=== PATIENT | male | born 1965 | race African-American/Black ===

== ENCOUNTER 2024-09-10 21:16 | Emergency (ER) | payer OTHER, SELFPAY ==
--- NOTE | ~2024-09-10 | XR_ITS ---
Left foot Technique: AP, oblique, and lateral views were obtained. Clinical History: Great toe pain Findings: No acute fracture or dislocation is seen. Osseous alignment is anatomic. There is moderate degenerative change of the first TMT joint. Soft tissues are unremarkable. 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 Reviewed, dictated and finalized at [facility]. 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
--- OUTSIDE RECORDS SUMMARY | 2024-09-10 21:19 | XMS_ITS | CONTINUITY OF CARE DOCUMENT ---
Author Name gabe doloresangelica Address Unknown Organization [facility] Address [address] [address] [address] [place] [address] Phone [phone] Care Team Providers Care Daytime Babysitter Name Role Phone Stalin REGAN, Logan Unavailable [phone] DESHAWN GARCIA MD Unavailable DESHAWN GARCIA MD Unavailable [phone] PROBLEMS Condition Status Date Provider Notes Chest pain active Marquita Gibson VITAL SIGNS Date Observation Value Provider weight E&M 229 [lb_av] Marquita Gibson height E&M 69 [in_i] Marquita Gibson INSURANCE PROVIDERS Payer name Policy type / Coverage type [employer] red libertarian ID [facility] [id number] Other [id number] TREATMENT PLAN Date Name Stress Exercise Card iolite HISTORY OF PROCEDURES Procedure Date Procedure Name Provider Procedure Notes S tatus Cardiolite, 2 units Logan Gant MD completed SPECT Images Logan Gant MD complet ed Stress EKG Logan Gant MD completed Stress EKG Robe Chaudhry MD complete d
--- OUTSIDE RECORDS SUMMARY | 2024-09-10 21:19 | XMS_ITS | Continuity of Care Document ---
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 Name Role Phone Annetta Woods MD Unavailable Unavailable Allergies, Adverse Reactions, Alerts Substance Reaction Status Criticality No Known Allergies Active No Inform ation Medications Medication Instructions Dosage Effective Dates (start - stop) Status Comments Lipitor 20 mg tablet take 1 tablet by or al route every day 20 MG - Active Procedures Procedure Date OFFICE [id number] BODY MASS INDEX DOCD SYST BP >= 140 MM HG6 IT DIAST BP >= 90 MM HG EKG (ELECTROCARDIOGRAM) GENERAL HEALTH PANEL LIPID PANEL PSA, TOTAL ROUTINE VENIPUNCTURE PREVENTATIVE-EST: 40-64 BODY MASS INDEX DOCD SYST BP GE 130 - 139MM HG DIAST BP 80-89 MM HG BASIC METABOLIC PANEL(BMP) ROUTINE VENIPUNCTURE OFFICE [id number] BODY MASS INDEX DOCD SYST BP LT 130 MM HG DIAST BP >= 90 MM HG BASIC METABOLIC PANEL(BMP) CBC, INC PLATELETS AND DIFFERENTIAL THYROID STIMULATION HORMONE(TSH) ROUTINE VENIPUNCTURE OFFICE [id number] BODY MASS INDEX DOCD SYST BP >= 140 MM HG6 IT DIAST BP >= 90 MM HG HEMOGLOBIN A1C HGA1C, GLYCO Pt inelig neg scrn van TELEPHONE E&M BY A PHYSICIAN; 11-20 ALBERTO NENITA SYST BP >= 140 MM HG6 IT DIAST BP >= 90 MM HG OFFICE [id number] BODY MASS INDEX DOCD SYST BP >= 140 MM HG6 IT DIAST BP >= 90 MM HG TISSUE EXAM BY PATHOLOGIST COLONOSCOPY AND BIOPSY OFFICE [id number] BODY MASS INDEX DOCD SYST BP >= 140 MM HG6 IT DIAST BP >= 90 MM HG BASIC METABOLIC PANEL(BMP) ROUTINE VENIPUNCTURE Pt inelig neg jennifern van PREVENTATIVE-EST: 40-64 BODY MASS INDEX DOCD SYST BP >= 140 MM HG6 IT DIAST BP >= 90 MM HG EKG (ELECTROCARDIOGRAM) GENERAL HEALTH PANEL LIPID PANEL MICROALBUMIN, QN (URINE) CREATININE, (U-R) ROUTINE VENIPUNCTURE Pt inelig neg jennifern van OFFICE [id number] BODY MASS INDEX DOCD SYST BP >= 140 MM HG6 IT DIAST BP >= 90 MM HG BASIC METABOLIC PANEL(BMP) CBC, INC PLATELETS AND DIFFERENTIAL THYROID STIMULATION HORMONE(TSH) 2018 ROUTINE VENIPUNCTURE EKG (ELECTROCARDIOGRAM) OFFICE [id number] BODY MASS INDEX DOCD SYST BP >= 140 MM HG6 IT DIAST BP >= 90 MM HG Pt inelig neg scrn depres OFFICE [id number]-MED BODY MASS INDEX DOCD SYST BP >= 140 MM HG6 IT DIAST BP >= 90 MM HG GENERAL HEALTH PANEL HEPATITIS C ANTIBODY HEPATITIS B SURFACE ANTIGEN (HBSAG) HIV-1 AG W/HIV-1 & HIV-2 AB LIPID PANEL PSA, TOTAL ROUTINE VENIPUNCTURE Advance Directives Directive Yes / No Effective Date File Name No Information Encounters Encounter Description Practice Location Reason(s) For Visit Diagnoses Date Provider Providers Copied on Encounter [employer] [employer], [address], [place], [place], [address] , [phone] [facility] No Information [address] Chuck [address]. [address], [facility] [address], [place], [place], [address], [place]. tel:[phone] OFFICE SQPIJ-CIV-TX TAILED [employer], [address], [place], [place], [address] , tel:[phone] [facility] Chronic Conditions (chief complaint) Body mass index [BMI] 34.0-34.9, adultEssential (primary) hypertensionHype rlipidemia, unspecifiedPredi abetesDizziness 2 Chuck Littlejohn. [address], [facility] [address], [place], [place], [address], [place]. tel:[phone] Referring Provider: Annetta Woods, [address], [place], [address] . tel:[phone] PREVENTATIVE -EST: 40-64 [employer] [employer], [address], [place], [place], [address] , tel:[phone] [facility] preventive exam (chief complaint) Body mass index [BMI] 35.0-35.9, adultEncounter for adult health check-upPrediabe tesEssential (primary) hypertension - 1 Chuck Littlejohn. [address], [address], [place], [place], [address], . tel:[phone] Referring Provider: [address], [place], [address] . tel:[phone] OFFICE ZTTWP-AGL-FQ [facility], [address], [place], [place], [address] , [place] tel: [phone] [facility] F/u HTN (chief complaint) Essential hypertensionBody mass index [BMI] 35.0-35.9, adult Mar- 1 Ananya Alvarez. [address], [address], [place], [place], [address], [place]. tel:[phone] Referring Provider: [address], [place], [address] . tel:[phone] OFFICE JYNLZ-CNZ-UT [facility], [address], [place], [place], [address] , [place] tel: [phone] [facility] F/u HTN (chief complaint) Essential hypertensionBody mass index [BMI] 34.0-34.9, adultElevated glucose [address], [address], [place], [place], [address], [place]. tel:[phone] Referring Provider: [address], [place], [address] . tel:[phone] TELEPHONE E&M BY A PHYSICIAN; 11-20 MINUTES [facility], [address], [place], [place], [address] , tel: [phone] [facility] Acute (chief complaint) Essential hypertension 1 Ananya Alvarez. [address], [address], [place], [place], [address], [place]. tel:[phone] Referring Provider: [address], [place], [address] . tel:[phone] OFFICE URYRR-NZU-XF [facility] [employer], [address], [place], [place], [address] , tel: [phone] [facility] F/u HTN (chief complaint) Essential hypertensionBody mass index (BMI) 35.0-35.9, adult Oct 0 Ananya Al[address]. [address], [address], [place], [place], [address], [place]. tel:[phone] Referring Provider: [address] [facility] [address], [place], [address] . tel:[phone] [employer] [employer], [address], [place], [place], [address] , tel: [phone] [facility] No Information Sep-0 0 Jamal Ant. [address] [place], [place], [address], . tel:[phone] Referring Provider: [address] [address], [place], [address] . tel:[phone] [facility], [address], [place], [place], [address] , [place] tel: [phone] [facility] No Information Sep-0 0 Jamal Ant. [address] [place], [place], [address], [place]. tel:[phone] Referring Provider: [address] [facility] [address], [place], [address] . tel:[phone] OFFICE [facility]YPZ[facility]LW [facility], [address], [place], [place], [address] , [place] tel: [phone] [facility] F/u HTN (chief complaint) Body mass index (BMI) 35.0-35.9, adultEssential hypertension Dec- 0 Ananya Al[address]. [address], [address], [place], [place], [address], [place]. tel:[phone] Referring Provider: Annetta Woods, [address], [place], [address] . tel:[phone] PREVENTATIVE -EST: 40-64 [facility], [address], [place], [place], [address] , [place] tel: [phone] [facility] preventive exam (chief complaint) Body mass index (BMI) 34.0-34.9, adultEncounter for adult health check-upChest pain, unspecified typeEssential hypertensionColo n cancer screening 0 Chuck Littlejohn. [address], [address], [place], [place], [address], [place]. tel:[phone] Referring Provider: [address], [place], [address] . tel:[phone] OFFICE FCXIJ-BEO-YG [facility], [address], [place], [place], [address] , [place] tel: [phone] [facility] Blood pressyre f/u (chief complaint)C hronic Conditions (chief complaint) Body mass index (BMI) 33.0-33.9, adultEssential (primary) hypertensionObes ity, unspecified 0 Chuck Littlejohn. [address], [address], [place], [place], [address], [place]. tel:[phone] Referring Provider: [address], [place], [address] . tel:[phone] OFFICE DCBQH-VHK-NK [facility], [address], [place], [place], [address] , [place] tel: [phone] [facility] Acute (chief complaint) Body mass index (BMI) 33.0-33.9, adultEssential hypertensionChes t pain, unspecified type 9 Lazjb Kim. [address], [address], [place], [place], [address], [place]. tel:[phone] Referring Provider: [address], [place], [address] . tel:[phone] OFFICE MSTBR-YZV-XO [facility], [address], [place], [place], [address] , tel: [phone] [facility] preventive exam (chief complaint) Body mass index (BMI) 32.0-32.9, adultPhysical examElevated blood pressure readingScreen for STD (sexually transmitted disease) Chuck Littlejohn. [address], [address], [place], [place], [address], [place]. tel:[phone] Referring Provider: [address], [place], [address] . tel:[phone] Family History Family Member Type Diagnosis Age At Onset Mother Problem (finding) hypertension Father Problem (finding) Alive and well Maternal grandmother Problem (finding) Cancer, unknown (Cause Of ) Mother Problem (finding) hypercholesterolemia Payers Payer name Insurance type Covered alliance party ID Authoraidaa billy(s) [facility] [id number] Social History Type Description Quantity Date Captured Comments Alcohol Use Details Unknown Caffeine Use Details Unknown Tobacco Use Status No Information Smoking Status No Information Sex Male Chief Complaint And Reason For Visit No Information Reason For Referral Reason For Referral No Information Plan Of Treatment Date Type Action Status Goal Dietary manageme nt education, guidance, and counseling completed Goal Dietary manageme nt education, guidance, and counseling completed Goal Dietary manageme nt education, guidance, and counseling completed Goal Dietary manageme nt education, guidance, and counseling completed Goal Dietary manageme nt education, guidance, and counseling completed Goal Dietary manageme nt education, guidance, and counseling completed Goal Dietary manageme nt education, guidance, and counseling completed Goal Dietary manageme nt education, guidance, and counseling completed Goal Dietary manageme nt education, guidance, and counseling completed Goal Dietary manageme nt education, guidance, and counseling completed Referral Ordered: Chest Xray, 2 Views ordered Referral Referred To: MINA LAKHANI [id number] [place], [phone] Ordered: Referrals: Internal Medicine. MINA LAKHANI. Evaluation/diagnostic/treatment - Level 3 ordered Referral Referred To: [address], [place], [phone] Ordered: COLONOSCOPY, FLEXIBLE, DIAGNOSTIC W/ COLLECTION OF SPECIMEN ordered Referral Referred To: [address] [place], [phone] Ordered: Stress test, using adenosine ordered Future Order: Radiology Order Ch est Xray, 2 Views ([id number]), Sent on: Sent History Of Present Illness Encounter Date Complaint History Of Prese nt Illness Comments: -HTN: didn't take HCTZ: hasn't been taking his rx for several months. no cp/palp/sob, no LE edema. No PND no orthopnea. This AM, had LH when standing to take a shower this AM, sx resolved with shower and eating something. Symptoms since Tuesday. He had a root canal yesterday. Per , reports he has been off since : feels like head was foggy, and he had clammy today. No n/v. no cp/palp/sob. No LE Edema. No sx when lying down. At work, walking around and feeling ok. -HL: ASCVD 11% 03/31, declined statin. No change in diet/exercise/weight. He is willing to initiate.-PreDM: No change in diet/exercise/weightWife accompanies. Delcines td, Shingrix covid vaccine Chronic Conditions *See Chronic Conditions HPI preventive exam (comments) Physi rene c-scope 12/29 next 5-10yrsPSA 0.6 10/27. Duedecines shingrix: had shingles infection left flank 2015, declines tetanus vaccine as well. HCV Screening 10/27 negativeVax:Tdap, Shingrix, fluvax, covid decliens all, no questions-PreDM: hba1c UTD 6.4-HTN: on rx. No cp/palp/sob, no LE edema. No PND no orthopnea preventive exam Men's preventive visit. Marital status: . Relevant history is negative for tobacco use, alcohol use. F/u HTN Here for f/u HTN . At last visit BP 140/98 HR 105, 140/100 HR 104. He had been taking HCTZ for about 1 week, Bp was improving, so no med changes made at that time. BP is improving but DBP remains above goal. Denies H/A, dizziness, edema, palpitations, CP, SOB.BMI 35, up 3.2lbs. F/u HTN Here for f/u HTN . Pt had BP checked by school nurse, last visit was . Bp readings were 170/116, 170/110. He had been out of HCTZ for months. We restarted this. States it took a week for [facility] to get it for him. He noticed increase in urination. No CP, H/A, dizziness, SOB, palpitations. States every now and then he smells cigarette smoke, though no one is smoking. His doesn't smell it, and this bothers her. Happens maybe once/day. No other neurologic symptoms, lasts a few seconds, not accompanied by H/A, migraine, seizure, vision changes, etc.BMI 34.3, down 6lbs from last visit a year ago.Declines influenza vaccine. Acute Appt today via [place], audio only.Pt was having H/A, dizziness, and sweats on 02/08. Stayed in bed that day, he felt very dizzy, if he sat up he got dizzy. Went to work yesterday, felt better. BP 179/124, checked at [facility]. He's at work now, BP 0900 170/110. Checked it again just now, 170/116 HR 79 SpO2 98%. He was on HCTZ, but he ran out. He feels better than he did Tuesday. Yesterday felt pretty good. His legs feel tired, notes walking on concrete at school. Not dizzy today or yesterday, not LH. No SOB. Denies CP, edema, palpitations, vision changes.He thinks his weight is about the same, perhaps a few pounds less. No formal exercise, but walks a lot at work, some lifting. 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 He has not been vaccinated. Also does not get flu shot.No fevers, chills, cough, SOB, pharyngitis, sinus pressure, sore throat, N/V, diarrhea, loss of taste or smell. F/u HTN Here for 1-month f/u HTN. At last visit BP 140/92 HR 95, 144/100 HR 88. No meds changed. Feels pretty good. Some mild discomfort finger on L hand at times. No CP, H/A, dizziness, SOB, edema, palpitations. Overall doing well. BP remains above goal. BMI 35.2. Weight up 1.8lbs.Declines influenza vaccine. F/u HTN Here for f/u HTN . At last visit BP 180/109 HR 85, 165/108. Dr. Woods instructed pt to resume HCTZ 25mg qFD. Also referred to Dr. Villalobos re: CP. He did have stress test 2 days ago, he has not heard results, will request.He is taking HCTZ, no issues. Denies CP, no recurrence. No SOB, palpitations, H/A, dizziness. BMI 35, up 1.2lbs from last visit. Working on his diet. Avoids fried foods, uses Air Fryer.Looks like colonoscopy is scheduled next week, he is going to call to clarify, he has the bowel prep at home. preventive exam (comments) c-sco pe ref 10/27 ref again 11/28PSA 0.6 10/27decines shingrix: had shingles infection left flank 2015, declines tetanus vaccine as well. HCV Screening 10/27 negativedoing well, family doing well, staying healthy BUTHTN: had an incident with a family member, not physical , but emotionally stressful. Since this time, he has been having sx of cp radiating to left arm . 2wks ago. Has been working, staying active without any exertinoal sx. no pain with movement of left arm. no radiation to neck. no LE edema. no cough. no SOB, no TAVAREZ, No dizzy/LH. hasn't been checking BPno pnd no orthopnea. Sx is tingling pain, 2.5/10. never wakes him from sleepbought ASA 81mg, hasn't tried it. no remitting maneuversWife was crying which is what triggered this appt. She is concernedHe has no heartburn sx, no assoc with exertion: he is very active, moving paint cans up and down ladders, n recent strain. no weakness. no falls no trauma. right handeddeclins to give details about incident with family member, but he feels safe, and this was not physical.stopped BP medications, ahsn't checked BP at home preventive exam Men's preventive visit. Patient Health Questionnaire (PHQ-2) is negative. Relevant history is negative for tobacco use, alcohol use. Blood pressyre f/u accompanied b y wifeseveral month sx of vague fuzzy feeling. no overt LH, no dizzy, no cp/palp/sob. no weakness, nofalls no trippnig no leaning to one side. no fatigue no n/v. Chronic Conditions *See Chronic Conditions HPI Acute Here feeling diz zy at times. Feels like his body is off, equilibrium off. The room is not spinning, not specifically dizzy, but feels like sometimes something is pulling on the back of his eyeballs. Takes a minute in the morning for his eyes to focus. No headaches. The balance feels off if he goes from sitting to standing, or if he looks down for a while and then walks. Sometimes feels like he is drifting.His BP is high, similar to last visit. Thinks it is d/t his urging him to come into today. Also notes he had some chest pain last week, intermittent over 2-3 days, L chest above the breast, he rates it 2.5-3/10, his notes he was sweating. Not necessarily with exertion, happened at rest. BMI 33.8, weight up 12lbs from last visit.Declines influenza vaccine. preventive exam (comments) melecio [facility] [employer] engaged TOMORROW! wants to get STD check today: no specific concernsc-scope ref 10/27PSA started 10/27decines shingrix: had shingles infection left flank 2016hasn't seen a dr in >5yrs, possibly 10. thinks he has had tetanus in <10yrs bc of his job he will find outvery active, could eat betterBP is high today: no cp/palp/sobno le edemano ET limitationsno pnd no orthopneahe hates drs, nervous about being here. has checked at grocery store and was always nL preventive exam Men's preventive visit. Patient Health Questionnaire (PHQ-2) is positive. Relevant history is negative for tobacco use, alcohol use. Functional Status Date Functional Assessmen t No Information Instructions Date Instruction Additional Infor mation cbc cmp tsh [id number] P controlto ER with any recurrencef/u 1wkBP f/u then Physical 6months Related to Dizziness hba1c continue effor ts regarding weight losshealthy dietregular aerobic exercisePhysical 6months Related to Prediabetes education provided r e: ASCVD and recommendations: he will initiate statin today Related to Hyperlipidemia, unspecified EKGcbc cmp tshresume HCTZwe discussed my concern re: BP readings as well as sx: to ER with any recurrence of dizziness/LH, or cp/palp/sob. We discussed stroke, [place], sudden risk. F/U 1wk Related to Essential (primary) hypertension Prescribed activity/exercise edu cation Related to Body mass index (BMI) 34.0-34.9, adult Disease process Dietary management e ducation, guidance, and counseling Related to Body mass index (BMI) 34.0-34.9, adult weight losshealthy d ietregular aerobic exerciseROV 6months Related to Body mass index [BMI] 35.0-35.9, adult -cbc, cmp, tsh, lipi ds-STEs-PSA, prostate cancer screening guidelines dxgqktkve-e-cleiw UTD-CT CHest n/a-HCV Screening s/p neg-Vaccines: tetanus, covid, fluvax, shingrix opts to decline-healthy diet and Exercise Related to Encounter for adult health check-up hba1c UTDhealthy diet, exercise Related to Prediabetes cbc, cmp, tsh, lipid s, MAcontinue current regimen pending above Related to Essential (primary) hypertension Prescribed activity/exercise edu cation Related to Body mass index (BMI) 35.0-35.9, adult Dietary management e ducation, guidance, and counseling Related to Body mass index (BMI) 35.0-35.9, adult Immunizations Up 3.2lbs. Eats a he althy diet, active at work.P:Weight-loss efforts encouraged through diet and exercise Related to Body mass index [BMI] 35.0-35.9, adult BP remains above goa l, but improving. Taking HCTZ daily as prescribed. Slight increase in Cr at last check. Denies H/A, dizziness, edema, palpitations, SOB, CP. Hasn't been able to get BP checked by school nurse lately as she is going between 4 schools. He does have a home BP cuff.P:Labs: BMPContinue HCTZHeart healthy dietMedication changes pending BMP results; f/u at ROV 04/09, call sooner with issues Related to Essential hypertension Dietary management e ducation, guidance, and counseling Related to Body mass index (BMI) 35.0-35.9, adult Heart healthy diet BP improving with re sumption of HCTZ; he has only been on it for about 1 week, as this is how long it took [facility] to fill the script. HR low ST. No CP, H/A, dizziness, edema, palpitations.P:Continue HCTZ 50mg QDLabs: BMP, CBC, TSHHave nurse at work check BP and HR 2x/weekF/u 3 weeks, call sooner with worsening BP readings; also schedule next ROV with Dr. Woods Related to Essential hypertension Down 6lbs from 01/28 .P:Heart healthy diet, weight-loss efforts encouraged Related to Body mass index [BMI] 34.0-34.9, adult Heart healthy diet Dietary management e ducation, guidance, and counseling Related to Body mass index (BMI) 34.0-34.9, adult Giving encouragement to exercise Related to Body mass index (BMI) 34.0-34.9, adult Appt today via teleh ealth, audio only. Pt was feeling LH, dizzy 02/08. This has improved. Had the nurse at his job check his BP, it has been elevated. He has been out of HCTZ for 8-9 months. Denies CP, SOB, edema, palpitations. Today no H/A or dizziness. He gets tested weekly for COVID-19 at work as he is unvaccinated, last tested 02/09, got results today, negative. Discussed need for BP control and annual appt with . P:Resume HCTZ 50mg QD, sent to pharmacyve nurse at work check BP periodicallyHeart healthy diet, exercise encouragedF/u 2 weeks for BP check, BMP. Call sooner with issues. To ER with severe CP, intractable H/A, dizziness Related to Essential hypertension Safety precautions BP remains above goa l; pt reluctant to add second medication, agrees to increasing HCTZ dose. Making lifestyle changes, plans to work on cutting out soda.P:Increase HCTZ 50mg QDHeart healthy dietEncouraged to check BP 3x/weekF/u 1 week for BP check and BMP, call sooner with issues Related to Essential hypertension Up 1.8lbs. Diet is p retty good. Cut down on portion size. Only exercise is at work up and down steps and ladders. P:Weight-loss efforts encouraged through diet and exercise Related to Body mass index (BMI) 35.0-35.9, adult Dietary management e ducation, guidance, and counseling Related to Body mass index (BMI) 35.0-35.9, adult Heart healthy diet Up 1.2lbs. Working o n diet.P:Weight-loss efforts encouraged through diet and exercise Related to Body mass index (BMI) 35.0-35.9, adult BP improving but rem ains above goal. No further CP. Denies SOB, H/A, dizziness, palpitations, fatigue. Had stress test 2 days ago, has not heard results. P:Labs: BMPCheck BP and HR 3x/week and record, bring to next apptContinue HCTZHeart healthy dietRequest stress test resultsMedication changes per Dr. Woods pending BMP results, schedule f/u 1 month, call sooner with issues Related to Essential hypertension Giving encouragement to exercise Related to Body mass index (BMI) 35.0-35.9, adult Dietary management e ducation, guidance, and counseling Related to Body mass index (BMI) 35.0-35.9, adult Heart healthy diet cbc, cmp, tsh, lipid sekgMAimportance of improved BP control emphasized todaynext steps pending above Related to Essential hypertension weight lossBP f/U then Physical 1yr Related to Body mass index (BMI) 34.0-34.9, adult cbc, cmp, tshconcern ing sx: Stress exercise was ok 04/30EKGBP controlwe discussed my concerns re: gender, age, poorly controlled HTN and BMI for CAD. BP improvement imperative, but also may need CV c/s Related to Chest pain, unspecified type -cbc, cmp, tsh, lipi cr-cli-QVHs-PSA skip this year, prostate cancer screening guidelines kdtqembfd-g-ghzwd ref again -Vaccines: Tetanus and shingrix: declines. Education provided-healthy diet and Exercise Related to Encounter for adult health check-up Giving encouragement to exercise Related to Body mass index (BMI) 34.0-34.9, adult Dietary management e ducation, guidance, and counseling Related to Body mass index (BMI) 34.0-34.9, adult Disease process weight loss: diet an d exercise. we discussed goal weight for now is 200lbs Related to Obesity, unspecified he had stress test b ut we don't have results. Requested todayd/c metoprolol and initiate HCTZ. he is very hesitant to consider rx, and wants to be on this for as short a period of time as possible. -discussed diet/lifestyle modification-/fu 2-4tyi-[id number] eval of sx if BP well controlled and sx persist Related to Essential (primary) hypertension Giving encouragement to exercise Related to Body mass index (BMI) 33.0-33.9, adult Dietary management e ducation, guidance, and counseling Related to Body mass index (BMI) 33.0-33.9, adult Disease process BP remains above goa l, pt feeling off-balanced at times with position changes, had some chest pain last week for a few days intermittently, mild. Discussed importance of BP control, encourage starting a medication to prevent long-term damage, risks of heart attack, CVA, . Dr. Perla reviewed EKG, discussed with pt.P:Labs: BMP, CBC, TSHStart Metoprolol succinate 50mg ER QDF/u 3-4 weeks, call sooner with issues Related to Essential hypertension Pt notes he had ches t pain for 2-3 days last week, intermittent, mild, L chest above the breast, rates 2.5-3/10. His notes he had some sweating with this. Reviewed prior EKG, compared to today. No current CP. BP uncontrolled. Dr. Perla discussed EKG findings, c/w prolonged uncontrolled HTN, need to treat.P:Labs: BMP, CBC, TSHStart Metoprolol succinate 50mg ER QDHeart healthy diet, exercise, weight-loss efforts encouragedF/u 3-4 weeks, call sooner with issues Related to Chest pain, unspecified type Weight up 12lbs from last visit.P:Weight-loss efforts encouraged through diet and exercise Related to Body mass index (BMI) 33.0-33.9, adult Giving encouragement to exercise Related to Body mass index (BMI) 33.0-33.9, adult Heart healthy diet Dietary management e ducation, guidance, and counseling Related to Body mass index (BMI) 33.0-33.9, adult cbc, cmp, tsh lipdse kghe will check BP at grocery store over the weekend: suspect element of [place] HTN if home readings okeducation providedhealthy diet, exercise Related to Elevated blood pressure reading -pretest counseling performed today-HIV, HepB/C, RPR, trich, GC and Chlamydia today-Safe sex practices encouraged.BP f/u then PHysical 1yr Related to Screen for STD (sexually transmitted disease) -cbc, cmp, tsh, lipi dl-ksc-TUGg-PSA, prostate cancer screening guidelines hptxgokqr-u-edrel ref-Vaccines: Tetanus up to date will get me report. declines shingrix-healthy diet and Exercise Related to Physical exam Disease process Giving encouragement to exercise Related to Body mass index (BMI) 32.0-32.9, adult Dietary management e ducation, guidance, and counseling Related to Body mass index (BMI) 32.0-32.9, adult Assessments Type Assessment Date No Information Patient Care Teams Name Effective Dates (start - stop) Status Members No Information
[2024-09-10 21:20] VITALS: BP 190/104; PULSE 99; RESP 16; TEMP 36.4; O2SAT 99
[2024-09-11] VITALS: BP 185/98; PULSE 79; RESP 16; O2SAT 98
--- OUTSIDE RECORDS SUMMARY | 2024-09-11 00:24 | XMS_ITS | Continuity of Care Document ---
Author Organization [email or web address] Address [address] [place] [address] Phone Care Team Providers Care Program Manufacturing Leader Name Role Phone Annetta Woods MD Unavailable Unavailable Allergies, Adverse Reactions, Alerts Substance Reaction Status Criticality No Known Allergies Active No Inform ation Medications Medication Instructions Dosage Effective Dates (start - stop) Status Comments Lipitor 20 mg tablet take 1 tablet by or al route every day 20 MG - Active Procedures Procedure Date OFFICE SLXFS-BFI-ITIGUYPT BODY MASS INDEX DOCD SYST BP >= 140 MM HG6 IT DIAST BP >= 90 MM HG EKG (ELECTROCARDIOGRAM) GENERAL HEALTH PANEL LIPID PANEL PSA, TOTAL ROUTINE VENIPUNCTURE PREVENTATIVE-EST: 40-64 BODY MASS INDEX DOCD SYST BP GE 130 - 139MM HG DIAST BP 80-89 MM HG BASIC METABOLIC PANEL(BMP) ROUTINE VENIPUNCTURE OFFICE QFEQW-UAA-TCKIPPLC BODY MASS INDEX DOCD SYST BP LT 130 MM HG DIAST BP >= 90 MM HG BASIC METABOLIC PANEL(BMP) CBC, INC PLATELETS AND DIFFERENTIAL THYROID STIMULATION HORMONE(TSH) ROUTINE VENIPUNCTURE OFFICE VIMVI-PZX-UGSDYKZN BODY MASS INDEX DOCD SYST BP >= 140 MM HG6 IT DIAST BP >= 90 MM HG HEMOGLOBIN A1C HGA1C, GLYCO Pt inelig neg scrn van TELEPHONE E&M BY A PHYSICIAN; 11-20 ALBERTO NENITA SYST BP >= 140 MM HG6 IT DIAST BP >= 90 MM HG OFFICE MLZBU-GUC-EKBCCACZ BODY MASS INDEX DOCD SYST BP >= 140 MM HG6 IT DIAST BP >= 90 MM HG TISSUE EXAM BY PATHOLOGIST COLONOSCOPY AND BIOPSY OFFICE KZHLY-EOU-HDHVGWWK BODY MASS INDEX DOCD SYST BP >= [...] VENIPUNCTURE Pt inelig neg jennifern van OFFICE RHDEX-EGM-BSHFLKUS BODY MASS INDEX DOCD SYST BP >= 140 MM HG6 IT DIAST BP >= 90 MM HG BASIC METABOLIC PANEL(BMP) CBC, INC PLATELETS AND DIFFERENTIAL THYROID STIMULATION HORMONE(TSH) 2018 ROUTINE VENIPUNCTURE EKG (ELECTROCARDIOGRAM) OFFICE NPEYO-ABC-IPBAEBYV BODY MASS INDEX DOCD SYST BP >= 140 MM HG6 IT DIAST BP >= 90 MM HG Pt inelig neg scrn depres OFFICE TRFRA-XGO-GUJR-MED BODY MASS INDEX DOCD SYST BP >= [...] Diagnoses Date Provider Providers Copied on Encounter [place], [address], [place], [place], [address] , [phone] [facility] No Information [address], [facility] [address], [place], [place], [address], [place]. tel:[phone] OFFICE HRSIM-PWU-MO TAILED [place], [address], [place], [place], [address] , tel:[phone] [facility] Chronic Conditions (chief complaint) Body mass index [BMI] 34.0-34.9, adultEssential (primary) hypertensionHype rlipidemia, unspecifiedPredi abetesDizziness 2 Chuck Littlejohn. [address], [facility] [address], [place], [place], [address], [place]. tel:[phone] Referring Provider: Annetta Woods, [address], [place], [address] . tel:[phone] PREVENTATIVE -EST: 40-64 [facility], [address], [place], [place], [address] , tel:[phone] [facility] preventive exam (chief complaint) Body mass index [BMI] 35.0-35.9, adultEncounter for adult health check-upPrediabe tesEssential (primary) hypertension - 1 Chuck Littlejohn. [address], [address], [place], [place], [address], . tel:[phone] Referring Provider: [address], [place], [address] . tel:[phone] OFFICE YTYPJ-KBQ-ID [facility], [address], [place], [place], [address] , [place] tel: [phone] [facility] F/u HTN (chief complaint) Essential hypertensionBody mass index [BMI] 35.0-35.9, adult Mar- 1 Ananya [address]. [address], [address], [place], [place], [address], [place]. tel:[phone] Referring Provider: [address], [place], [address] . tel:[phone] OFFICE TJUTA-QCU-UV [facility], [address], [place], [place], [address] , [place] tel: [phone] [facility] F/u HTN (chief complaint) Essential hypertensionBody mass index [BMI] 34.0-34.9, adultElevated glucose [address], [address], [place], [place], [address], [place]. tel:[phone] Referring Provider: [address], [place], [address] . tel:[phone] TELEPHONE E&M BY A PHYSICIAN; 11-20 MINUTES [facility], [address], [place], [place], [address] , tel: [phone] [facility] Acute (chief complaint) Essential hypertension 1 Ananya Alvarez. [address], [address], [place], [place], [address], [place]. tel:[phone] Referring Provider: [address], [place], [address] . tel:[phone] OFFICE PGGPT-TWC-YE [facility] [place], [address], [place], [place], [address] , tel: [phone] [facility] F/u HTN (chief complaint) Essential hypertensionBody mass index (BMI) 35.0-35.9, adult Oct 0 Ananya Al[address]. [address], [address], [place], [place], [address], [place]. tel:[phone] Referring Provider: [address] [facility] [address], [place], [address] . tel:[phone] [facility], [address], [place], [place], [address] , tel: [phone] [facility] No Information Sep-0 0 Jamal Ant. [address] [place], [place], [address], . tel:[phone] Referring Provider: [address] [place] [address], [place], [address] . tel:[phone] [place], [address], [place], [place], [address] , [place] tel: [phone] [facility] No Information Sep-0 0 Jamal Ant[address] [place], [place], [address], [place]. tel:[phone] Referring Provider: [address] [facility] [address], [place], [address] . tel:[phone] OFFICE WAAET-REN-MQ [facility], [address], [place], [place], [address] , [place] tel: [phone] [facility] F/u HTN (chief complaint) Body mass index (BMI) 35.0-35.9, adultEssential hypertension Dec- 0 Ananya [address]. [address], [address], [place], [place], [address], [place]. tel:[phone] Referring Provider: Annetta Woods, [address], [place], [address] . tel:[phone] PREVENTATIVE -EST: 40-64 [facility], [address], [place], [place], [address] , [place] tel: [phone] [facility] preventive exam (chief complaint) Body mass index (BMI) 34.0-34.9, adultEncounter for adult health check-upChest pain, unspecified typeEssential hypertensionColo n cancer screening 0 Chuck Littlejohn. [address], [address], [place], [place], [address], [place]. tel:[phone] Referring Provider: [address], [place], [address] . tel:[phone] OFFICE WOJSS-JIL-EO [facility], [address], [place], [place], [address] , [place] tel: [phone] [facility] Blood pressyre f/u (chief complaint)C hronic Conditions (chief complaint) Body mass index (BMI) 33.0-33.9, adultEssential (primary) hypertensionObes ity, unspecified 0 Chuck Littlejohn. [address], [address], [place], [place], [address], [place]. tel:[phone] Referring Provider: [address], [place], [address] . tel:[phone] OFFICE DTVIU-XUB-QY [facility], [address], [place], [place], [address] , [place] tel: [phone] [facility] Acute (chief complaint) Body mass index (BMI) 33.0-33.9, adultEssential hypertensionChes t pain, unspecified type 9 Lazjb Kim. [address], [address], [place], [place], [address], [place]. tel:[phone] Referring Provider: [address], [place], [address] . tel:[phone] OFFICE WDLMU-AGH-XE [facility], [address], [place], [place], [address] , tel: [phone] [facility] preventive exam (chief complaint) Body mass index (BMI) 32.0-32.9, adultPhysical examElevated blood pressure readingScreen for STD (sexually transmitted disease) Chuck Littlejohn. [address], [address], [place], [place], [address], [place]. tel:[phone] Referring Provider: [address], [place], [address] . tel:[phone] Family History Family Member Type Diagnosis Age At Onset Mother Problem (finding) hypercholesterolemia Maternal grandmother Problem (finding) Cancer, unknown (Cause Of ) Father Problem (finding) Alive and well Mother Problem (finding) hypertension Payers Payer name Insurance type Covered republican ID Authoraidaa billy(s) [facility] [id number] Social History Type Description Quantity Date Captured [...] Views ordered Referral Referred To: MINA LAKHANI [id number] [place], [phone] Ordered: Referrals: Internal Medicine. MINA LAKHANI. Evaluation/diagnostic/treatment - Level 3 ordered Referral Referred To: [address] [place], [place], [phone] Ordered: COLONOSCOPY, FLEXIBLE, DIAGNOSTIC W/ COLLECTION OF SPECIMEN ordered Referral Referred To: [address] [place], [phone] Ordered: Stress test, using adenosine ordered Future Order: Radiology Order Ch est Xray, 2 Views ([id number]), Sent on: Sent History Of Present Illness [...] ago.Declines influenza vaccine. Acute Appt today via [employer], audio only.Pt was having H/A, dizziness, and sweats on 02/08. Stayed in bed that day, he felt very dizzy, if he sat up he got dizzy. Went to work yesterday, felt better. BP 179/124, checked at [facility]. He's at work now, BP 0900 170/110. [...] lot at work, some lifting. He is religious leader at a school.Thinks he's been out [...] Instruction Additional Infor mation cbc cmp tsh [id number] P controlto ER with any recurrencef/u 1wkBP [...] of dizziness/LH, or cp/palp/sob. We discussed stroke, CA, sudden risk. F/U 1wk Related to Essential (primary) hypertension Prescribed activity/exercise edu cation Related to Body mass index (BMI) 34.0-34.9, adult Disease process Dietary management e ducation, guidance, and counseling Related to Body mass index (BMI) 34.0-34.9, adult weight losshealthy d ietregular aerobic exerciseROV 6months Related to Body mass index [BMI] 35.0-35.9, adult -cbc, cmp, tsh, lipi ds-STEs-PSA, prostate cancer screening guidelines jsuxcbziq-p-wztlz UTD-CT CHest n/a-HCV Screening s/p neg-Vaccines: tetanus, [...] to Body mass index (BMI) 34.0-34.9, adult -cbc, cmp, tsh, lipi bv-pse-XAQj-PSA skip this year, prostate cancer screening guidelines qaqxnhhkw-r-iijbz ref again -Vaccines: Tetanus and shingrix: declines. Education provided-healthy diet and Exercise Related to Encounter for adult health check-up cbc, cmp, tshconcern ing sx: Stress exercise was ok 04/30EKGBP controlwe discussed my concerns re: gender, age, poorly controlled HTN and BMI for CAD. BP improvement imperative, but also may need CV c/s Related to Chest pain, unspecified type Giving encouragement to exercise Related to Body [...] of time as possible. -discussed diet/lifestyle modification-/fu 5-2wdv-njrpxqk eval of sx if BP well controlled [...] (sexually transmitted disease) -cbc, cmp, tsh, lipi cu-fgy-DTIj-PSA, prostate cancer screening guidelines olmskazpi-v-ijywr ref-Vaccines: Tetanus up to date will get [...]
--- OUTSIDE RECORDS SUMMARY | 2024-09-11 00:24 | XMS_ITS | CONTINUITY OF CARE DOCUMENT ---
Author Name gabe doloresangelica Address Unknown Organization [facility] Address [address] [place] [address] Phone [phone] Care Team Providers Care Edge Sander Name Role Phone Stalin REGAN, Logan Unavailable [phone] DESHAWN GARCIA MD Unavailable DESHAWN GARCIA MD Unavailable PROBLEMS Condition Status Date Provider Notes Chest pain active Marquita Gibson VITAL SIGNS Date Observation Value Provider weight E&M 229 [lb_av] Marquita Gibson height E&M 69 [in_i] Marquita Gibson INSURANCE PROVIDERS Payer name Policy type / Coverage type [place] [employer] party ID [facility] [id number] Other [id number] TREATMENT PLAN Date Name Stress Exercise Card iolite HISTORY OF PROCEDURES Procedure Date Procedure Name Provider Procedure Notes S tatus Cardiolite, 2 units Logan Gant MD completed SPECT Images Logan Gant MD complet ed Stress EKG Logan Gant MD completed Stress EKG Robe Chaudhry MD complete d
--- NOTE | 2024-09-11 00:44 | ED_ITS ---
HPI - Extremity Injury (Lower) General Chief Complaint: Extremity Injury, Lower Stated Complaint: Left foot pain after wearing Crocs Time Seen by Provider: 09/10/24 23:52 Source: patient Mode of arrival: ambulatory Limitations: no limitations History of Present Illness HPI Narrative: Patient is a 59 y/o male who presents to the ED with c/o left 1st toe pain. Patient reports he was wearing Crocs shoes a couple of days ago began having pain throughout his left 1st toe afterwards. Denies any actual injury. Denies numbness. Has not taken anything for pain. Denies history of similar pain. Related Data Allergies Allergy/AdvReac Type Severity Reaction Status Date / Time No Known Allergies Allergy Verified 09/10/24 23:59 Review of Systems Review of Systems: All systems reviewed & are unremarkable except as noted in HPI. All systems reviewed & are unremarkable except as noted in HPI and below PMFSH Past Medical History Medical History Pure hypercholesterolemia, unspecified Hypertension Surgical History Surgical History Closed fracture of 4th metacarpal Pin placed: 1998 Family History Family History Mother Hypertension Father No problems noted. Sibling Diabetes mellitus Social History Social History Smoking status: Never smoker Second hand tobacco smoke exposure: No Alcohol intake: never Substance use: never Substance use type: does not use Lack of Transportation: No Lack of Food: Never True Current Housing: I Have Housing Concerned About Future Housing: No Difficulty Paying Gas/Electric Bills: No Difficulty Paying for Meds: No Currently Unemployed: No Education: Associate Degree Difficulty w/ Childcare or Family Care: No Living arrangements: with family Occupation/Education: occupation Gender identity (if verbalized by the patient): Male Sexual Orientation (if Verbalized by the Patient): Straight or Heterosexual Spiritual care concerns: No Exam Narrative: GENERAL: Well appearing, obese with BMI of 31.7, non-toxic, in no acute distress. HEAD: Normocephalic, atraumatic. RESPIRATORY: Airway patent, respirations nonlabored. CARDIOVASCULAR: Regular rate and rhythm. Pedal pulses intact MUSCULOSKELETAL: No gross deformities. Mild swelling noted to L first mtp region with focal TTP with any light touch. No significant erythema or warmth. No significant tenderness throughout remainder of dorsal foot or medial/lateral ankle. SKIN: Warm, dry, normal color. NEURO: A&O X3. Speech clear. No ataxic movements. PSYCHIATRIC: Appropriate mood and affect. Normal interaction. Course Vital Signs Vital signs: Vital Signs Temperature 97.5 F L 09/10/24 21:20 Pulse Rate 99 09/10/24 21:20 Respiratory Rate 16 09/10/24 21:20 Blood Pressure 190/104 H 09/10/24 21:20 Pulse Oximetry 99 09/10/24 21:20 Oxygen Delivery Room Air 09/10/24 21:20 Temperature 97.5 F L 09/10/24 21:20 Pulse Rate 82 09/11/24 01:28 Respiratory Rate 14 09/11/24 01:28 Blood Pressure 176/91 H 09/11/24 01:28 Pulse Oximetry 99 09/11/24 01:28 Oxygen Delivery Room Air 09/10/24 21:20 MDM - Extremity Injury (Lower) MDM Narrative Medical decision making narrative: X-ray of left foot interpreted by myself without acute fracture. Exam consistent with gout. Patient will be started on anti-inflammatories. He has no history of kidney disease. Records reviewed from June of earlier this year showed normal kidney function. Will also prescribe short course of Shickley for more severe pain. Given dose of steroids in the ED today. Advised patient have very close follow-up with PCP for further evaluation. No evidence of septic joint on exam. No significant warmth or erythema. Afebrile. Patient able to move joint, just has pain with this. Patient denies ETOH use. Denies significant aggravating foods. He had previously been on hydrochlorothiazide, but states he has not taken this in a few months. His blood pressure was noted to be elevated here. Discussed this with patient. He states he stepped taking hydrochlorothiazide as he did not like the way it made him feel. Will start patient on amlodipine for blood pressure control. Advised she will need to have very close follow-up again for this. Given strict return precautions should symptoms worsen or continue. Patient voiced understanding. Discharged in stable condition. Medical Records Attestation: I reviewed the patient's medical records. Imaging Data Attestation: I personally reviewed and interpreted this imaging study as follows: My impression: XR L foot: no acute osseous abnormality. Discharge Plan Discharge Clinical Impression: Gout, Elevated blood pressure reading with diagnosis of hypertension Patient Disposition: Home Condition: Stable Instructions: Antibiotic Form, Low Purine Diet (ED), Gout (ED) Additional Instructions: Take naproxen twice daily as prescribed. Utilize Shickley as needed for more severe pain. Elevate leg, recommend frequent icing to foot. Follow-up closely with your primary care doctor for further evaluation. Return to the ED for worsening or severe pain, swelling, redness of toe, fevers, or any other symptoms of concern. Patient Language: Citizen Of [place] Prescriptions: New naproxen 500 mg tablet 500 mg PO BID 7 Days Qty: 14 0RF hydrocodone-acetaminophen 5-325 mg tablet 1 tablet PO Q6H PRN (Reason: pain) Qty: 5 0RF amlodipine 5 mg tablet 5 mg PO DAILY Qty: 60 0RF No Action amlodipine 10 mg tablet 10 mg PO DAILY Qty: 90 1RF rosuvastatin 10 mg tablet 10 mg PO DAILY Qty: 90 1RF triamterene-hydrochlorothiazid 37.5-25 mg capsule 1 cap PO DAILY Qty: 90 1RF Follow-up/Referrals: Samy Hernandes MD [Primary Care Provider] - Stand Alone Forms: Work/School Release IP Time of Disposition: 00:51
[2024-09-11] MEDS: methylPREDNISolone SOD SUCC 125 MG VIAL IM (01:14)
[2024-09-11] MEDS: KETOROLAC (*BKC) 60 MG/2 ML VIAL IM (01:15)
[2024-09-11] MEDS: HYDROcodone/acetaminophen (*CRX) 5-325 MG TABLET 1 TAB PO (01:17)
[2024-09-11 01:27] VITALS: BP 176/91; PULSE 82; RESP 14; O2SAT 99
[2024-09-11 01:28] VITALS: BP 176/91; PULSE 82; RESP 14; O2SAT 99
== END 2024-09-11 01:31 | disposition home or self-care (01) ==
PROVIDERS: Emergency Provider Physician Assistant; PCP Family Medicine
DX: M10.9 Gout, unspecified (principal); R03.0 Elevated blood-pressure reading, without diagnosis of hypertension; E78.5 Hyperlipidemia, unspecified
CPT/HCPCS: 73630; 96372; 99284; A9270; J1885; J2919